=== PATIENT | female | born 1960 | race Caucasian/White ===

== ENCOUNTER 2021-12-12 10:19 | Observation (INO) | payer OTHER ==
[~2021-12-12] VITALS: Ht 165.1 cm; Wt 108.9 kg
[2021-12-12 11:17] LABS: HEMOGLOBIN 11.6 gm/dl (12.3-15.3); RED BLOOD COUNT 4.45 M/UL (4.00-5.10); WHITE BLOOD COUNT 6.1 K/UL (4.5-11.0)
[2021-12-12 11:50] LABS: BUN/CREATININE RATIO 15 (0-10)
[2021-12-12] MEDS ORDERED: CYANOCOBAL1000 MCG/1 INJ (16:00)
[2021-12-12] MEDS ORDERED: VITAMIN D21250 MCG PO (16:01)
[2021-12-12] MEDS ORDERED: LEVOTHYROXINE137 MCG PO (16:01)
[2021-12-12] MEDS ORDERED: FAMOTIDINE20 MG PO (16:01)
[2021-12-12] MEDS ORDERED: TRADJENTA5 MG PO (16:02)
[2021-12-12] MEDS ORDERED: SERTRALINE HCL100 MG PO (16:02)
[2021-12-12] MEDS ORDERED: LISINOPRIL10 MG PO (16:02)
[2021-12-12] MEDS ORDERED: METOPROLOL TART25 MG PO (16:03)
[2021-12-12] MEDS ORDERED: SIMVASTATIN20 MG PO (16:03)
[2021-12-12] MEDS ORDERED: METFORMIN HCL1000 MG PO (16:03)
[2021-12-13 01:29] LABS: HEMOGLOBIN 11.6 gm/dl (12.3-15.3); RED BLOOD COUNT 4.35 M/UL (4.00-5.10); WHITE BLOOD COUNT 6.5 K/UL (4.5-11.0)
[2021-12-13 01:59] LABS: BUN/CREATININE RATIO 17 (0-10)
[2021-12-14 04:35] LABS: HEMOGLOBIN 11.5 gm/dl (12.3-15.3); RED BLOOD COUNT 4.42 M/UL (4.00-5.10); WHITE BLOOD COUNT 6.3 K/UL (4.5-11.0)
[2021-12-14 08:36] LABS: BUN/CREATININE RATIO 16 (0-10)
--- NOTE | 2021-12-14 14:10 | NUR ---
TR BAND REMOVED [id number] PATIENT RESTING COMFORTABLY WITH FAMILY. NO DISTRESS NOTED. AREA COVERED WITH 2X2 AND TEGADERM. WILL CONTINUE TO MONITOR.
[2021-12-14] MEDS ORDERED: NITROGLYCERIN0.4 MG SL (17:23)
[2021-12-14] MEDS ORDERED: ATORVASTATIN CA20 MG PO (17:23)
[2021-12-14] MEDS ORDERED: ASPIRIN EC81 MG PO (17:23)
[2021-12-14] MEDS ORDERED: ISOSORBIDE MONO30 MG PO (17:32)
== END 2021-12-14 19:52 | disposition home or self-care (01) ==
LOC: ER1 10:19 → NSRY 14:01 → MED SURG 4 14:01 → CDU 15:20 → MED SURG 4 21:05
PROVIDERS: Internal Medicine; Physician Assistant; Physician Assistant Medical; ADMIT Internal Medicine Pulmonary Disease
PROC: B2111ZZ Fluoroscopy of Multiple Coronary Arteries using Low Osmolar Contrast (ICD-10-PCS; principal; 2021-12-12)
DX: R07.89 Other chest pain (principal); I20.9 Angina pectoris, unspecified; I10 Essential (primary) hypertension; E11.9 Type 2 diabetes mellitus without complications; E03.9 Hypothyroidism, unspecified; K58.9 Irritable bowel syndrome, unspecified; E78.5 Hyperlipidemia, unspecified; F32.A Depression, unspecified; E66.9 Obesity, unspecified; Z68.39 Body mass index [BMI] 39.0-39.9, adult; Z79.84 Long term (current) use of oral hypoglycemic drugs; Z79.890 Hormone replacement therapy; Z79.899 Other long term (current) drug therapy; Z82.49 Family history of ischemic heart disease and other diseases of the circulatory system; Z88.0 Allergy status to penicillin; Z88.5 Allergy status to narcotic agent; Z88.6 Allergy status to analgesic agent; Z91.09 Other allergy status, other than to drugs and biological substances
CPT/HCPCS: 36415; 71045; 78452; 80048; 80053; 80061; 82550; 82553; 82962; 83036; 83690; 83735; 84484; 85025; 85027; 93005; 99152; 99285; A9502; C1769; C1887; C1894; G0378; J1644; J2250; J2785; J3010; J7040; Q9967